=== PATIENT | female | born 1985 | race Two or more races ===

== ENCOUNTER 2018-11-12 11:45 | Inpatient (IN) | payer OTHER ==
[~2018-11-12] VITALS: Ht 162.6 cm; Wt 3.6 kg
[2018-12-01] MEDS ORDERED: PRENATAL TABLE1 EAC3 PO (10:49)
== END 2018-12-04 10:36 | disposition home or self-care (01) | DRG 788 ==
LOC: LDR 12-01 05:13 → OB/GYN 12-01 05:13 → LDR 12-01 16:24 → O/R 12-01 21:31 → OB/GYN 12-01 22:04
PROVIDERS: ADMIT Obstetrics & Gynecology Maternal & Fetal Medicine
PROC: 10907ZC Drainage of Amniotic Fluid, Therapeutic from Products of Conception, Via Natural or Artificial Opening (ICD-10-PCS; 2018-12-01)
PROC: 3E033VJ Introduction of Other Hormone into Peripheral Vein, Percutaneous Approach (ICD-10-PCS; 2018-12-01)
PROC: 4A1HXCZ Monitoring of Products of Conception, Cardiac Rate, External Approach (ICD-10-PCS; 2018-12-01)
PROC: 10D00Z1 Extraction of Products of Conception, Low, Open Approach (ICD-10-PCS; principal; 2018-12-01 20:15)
DX: O61.0 Failed medical induction of labor (principal); Z3A.40 40 weeks gestation of pregnancy; Z37.0 Single live birth

== ENCOUNTER 2018-11-12 12:25 | Outpatient (CLI) | payer OTHER | END 2018-11-12 13:27 | disposition home or self-care (01) | LOC: NST 12:25 | DX: Z34.83 Encounter for supervision of other normal pregnancy, third trimester (principal) ==

== ENCOUNTER 2018-11-26 09:14 | Outpatient (CLI) | payer OTHER | END 2018-11-26 10:18 | disposition home or self-care (01) | LOC: NST 09:14 | DX: Z34.83 Encounter for supervision of other normal pregnancy, third trimester (principal) ==